=== PATIENT | female | born 1990 ===

== ENCOUNTER 2016-12-09 20:03 | Emergency (ER) | payer MEDICAID ==
[2016-12-09 20:27] VITALS: BP 104/88; PULSE 76; RESP 20; TEMP 98.5; O2SAT 100
--- NOTE | 2016-12-09 21:15 | C.PDOC ---
History Of Present Illness 26 y/o female complaining of pain in the right elbow for the last three weeks and associated with a palpable mass and swelling. Since onset, the swelling has resolved, but the pain and mass persist. Denies any known injury, or trauma. No other lumps or complaints. Time Seen by Provider: 12/09/16 21:00 Chief Complaint (Nursing): Upper Extremity Problem/Injury History Per: Patient History/Exam Limitations: no limitations Onset/Duration Of Symptoms: Days (21) Current Symptoms Are (Timing): Still Present Quality: "Pain" Severity: Moderate Exacerbating Factor(s): Nothing Recent travel outside of the [place]: No Additional History Per: Patient Past Medical History Vital Signs: Last Vital Signs Temp 98.5 F 12/09/16 20:25 Pulse 76 12/09/16 20:25 Resp 20 12/09/16 21:18 BP 104/88 12/09/16 20:25 Pulse Ox 100 12/10/16 02:56 - Medical History PMH: Gastritis Family History: States: Unknown Family Hx - Social History Hx Alcohol Use: No Hx Substance Use: No - Immunization History Hx Tetanus Toxoid Vaccination: Yes Hx Influenza Vaccination: Yes Hx Pneumococcal Vaccination: Yes Review Of Systems Except As Marked, All Systems Reviewed And Found Negative. Musculoskeletal: Positive for: Arm Pain Skin: Positive for: Lesions Physical Exam - Physical Exam Appears: Non-toxic, No Acute Distress Skin: Normal Color, Warm, Dry Head: Atraumatic, Normacephalic Ear(s): Bilateral: Normal Nose: Normal Oral Mucosa: Moist Neck: Normal, Normal ROM Chest: Symmetrical, No Deformity Cardiovascular: Other (cap refill normal) Back: Normal Inspection Extremity: Normal ROM, Other (pea-sized palpable mass posterior aspect of the elbow inferior to the olecranon process. No warmth, tenderness, erythema. ) Pulses: Left Radial: Normal, Right Radial: Normal Neurological/Psych: Oriented x3 ED Course And Treatment O2 Sat by Pulse Oximetry: 100 (RA) Pulse Ox Interpretation: Normal Progress Note: Patient evaluated - there is a pea sized palpable mass noted to the right elbow. She is medically stable for discharge, and is comfortable going home. All questions answered. Follow up instructions given. Disposition Counseled Patient/Family Regarding: Diagnosis, Need For Followup - Disposition Disposition: HOME/ ROUTINE Disposition Time: 21:11 Condition: STABLE Additional Instructions: Please follow up with PMD May take NSAIDs ( advil or motrin ) for pain or inflammation Return to ER if swlling, redness, increasing pain or worse Instructions: Tendinitis (ED) - Clinical Impression Clinical Impression: Tendinitis of right elbow - Scribe Statement The provider has reviewed the documentation as recorded by the Scribe Jessica Maki
== END 2016-12-09 21:18 | disposition home or self-care (01) ==
LOC: C.ER 20:03
DX: M77.9 Enthesopathy, unspecified (principal)